=== PATIENT | male | born 2000 | race Caucasian/White ===

== ENCOUNTER 2021-09-04 00:53 | Emergency (ER) | payer MEDICAID ==
[~2021-09-04] VITALS: Ht 177.8 cm; Wt 69.0 kg
[2021-09-04 01:58] LABS: BASOPHILS % 0.4 % (0.0-2.0); EOSINOPHILS % 0.1 % (0.0-5.0); HEMOGLOBIN. 14.8 g/dL (14.0-18.0); LYMPHOCYTES % 11.2 % (20.0-50.0); MEAN CORPUSCULAR HEMOGLOBIN 27.5 pg (28.0-32.0); MEAN CORPUSCULAR VOLUME 81.7 fL (80.0-94.0); MEAN PLATELET VOLUME 8.7 fl (7.4-10.4); MONOCYTES % 8.6 % (2.0-8.0); NEUTROPHILS % 79.7 % (40.0-76.0); PLATELET 374 x1000/uL (130-400); RED BLOOD CELL COUNT 5.38 mill/uL (4.7-6.1); RED CELL DISTRIBUTION WIDTH 14.5 % (11.6-14.6)
[2021-09-04 02:13] LABS: CHLORIDE 102 mEq/L (98-107)
[2021-09-04 02:20] LABS: *AMPHETAMINES SCREEN URINE NEGATIVE (NEGATIVE); *BARBITURATES SCREEN URINE NEGATIVE (NEGATIVE); *BENZODIAZEPINES SCREEN URINE NEGATIVE (NEGATIVE); *COCAINE SCREEN URINE PRESUMTIVE POSITIVE (NEGATIVE); CANNABINOID URINE SCREEN PRESUMTIVE POSITIVE (NEGATIVE); ETHANOL BLOOD < 10 mg/dL; METHADONE URINE SCREEN NEGATIVE (NEGATIVE); OPIATES URINE SCREEN NEGATIVE (NEGATIVE); PHENCYCLIDINE URINE SCREEN NEGATIVE (NEGATIVE)
[2021-09-04] MEDS ORDERED: OLANZAPINE 10 MG/VIAL IM ONE (03:30)
[2021-09-04] MEDS ORDERED: HALOPERIDOL LACTATE 5MG/ML VIAL IM ONE (04:00)
[2021-09-04] MEDS ORDERED: DIPHENHYDRAMINE 50MG/ML VIAL IM ONE (04:00)
[2021-09-04] MEDS ORDERED: QUETIAPINE FUMARATE 50MG TABLET PO SCH (12:45)
[2021-09-04] MEDS ORDERED: HALOPERIDOL LACTATE 5MG/ML VIAL IM NR (16:30)
[2021-09-04] MEDS ORDERED: DIPHENHYDRAMINE 50MG/ML VIAL IM NR (16:30)
[2021-09-04] MEDS ORDERED: ZIPRASIDONE MESYLATE 20MG/VIAL IM ONE (20:15)
[2021-09-05] MEDS ORDERED: OLANZAPINE 10 MG/VIAL IM ONE (01:30)
[2021-09-05] MEDS ORDERED: QUETIAPINE FUMARATE 50MG TABLET PO NR (09:45)
[2021-09-05] MEDS: VALPROATE SODIUM 250MG/5ML UDC PO SCH ×2 (09:56→17:00)
[2021-09-05] MEDS: OLANZAPINE 5MG TABLET ODT PO SCH ×2 (09:56→18:18)
[2021-09-06] MEDS: QUETIAPINE FUMARATE 50MG TABLET PO SCH ×2 (01:56→09:32)
[2021-09-06] MEDS ORDERED: LORAZEPAM 1MG TABLET PO ONE (08:45)
[2021-09-06] MEDS ORDERED: LORAZEPAM 1MG TABLET PO NR (09:30)
[2021-09-06] MEDS: VALPROATE SODIUM 250MG/5ML UDC PO SCH ×3 (09:32→17:17)
[2021-09-06] MEDS: OLANZAPINE 5MG TABLET ODT PO SCH ×3 (09:32→17:17)
[2021-09-07] MEDS ORDERED: MIDAZOLAM HCL 2 MG/2 ML VIAL IM ONE (06:00)
[2021-09-07] MEDS ORDERED: OLANZAPINE 10 MG/VIAL IM ONE (06:00)
[2021-09-07] MEDS: OLANZAPINE 5MG TABLET ODT PO SCH ×2 (08:28→17:00)
[2021-09-07] MEDS: VALPROATE SODIUM 250MG/5ML UDC PO SCH ×2 (08:28→17:00)
[2021-09-07] MEDS: QUETIAPINE FUMARATE 50MG TABLET PO SCH (08:39)
[2021-09-07] MEDS ORDERED: TRAZODONE HCL 50MG TABLET PO SCH (21:00)
[2021-09-08 05:05] VITALS: BP 132/75
[2021-09-08] MEDS: QUETIAPINE FUMARATE 50MG TABLET PO SCH (09:00)
[2021-09-08] MEDS: OLANZAPINE 5MG TABLET ODT PO SCH (09:00)
[2021-09-08] MEDS: VALPROATE SODIUM 250MG/5ML UDC PO SCH (09:00)
== END 2021-09-08 10:13 | disposition home or self-care (01) ==
LOC: ER 00:53
DX: F31.2 Bipolar disorder, current episode manic severe with psychotic features (principal); S51.812A Laceration without foreign body of left forearm, initial encounter; X78.8XXA Intentional self-harm by other sharp object, initial encounter; Z63.0 Problems in relationship with spouse or partner; R45.87 Impulsiveness; Y93.89 Activity, other specified; Y92.018 Other place in single-family (private) house as the place of occurrence of the external cause; F12.90 Cannabis use, unspecified, uncomplicated; F14.90 Cocaine use, unspecified, uncomplicated; Z20.822 Contact with and (suspected) exposure to COVID-19
CPT/HCPCS: 36415; 80053; 80305; 80307; 80320; 80329; 85025; 93005; 96372; 99285; C9803; J1200; J1630; J3486; J3490; U0003; U0005; Z7610; G0480